=== PATIENT | female | born 1960 | race Caucasian/White ===

== ENCOUNTER 2023-03-09 17:32 | Emergency (ER) | payer BC ==
[2023-03-09] MEDS ORDERED: Meropenem 1 GM in Sodium Chloride 0.9% 100 ML IV ONE (19:10)
== END 2023-03-09 20:42 | disposition home or self-care (01) ==
LOC: JP.ED 17:32
DX: L03.115 Cellulitis of right lower limb (principal); I48.91 Unspecified atrial fibrillation
CPT/HCPCS: 87070; 87077; 87186; 87205; 96365; 99283; J2185; J3490